=== PATIENT | female | born 2000 | race African-American/Black ===

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

== ENCOUNTER 2022-01-24 22:19 | Emergency (ER) | payer OTHER ==
[2022-01-24 22:27] VITALS: BP 117/76; TEMP 98.7; BMI 22.7
[2022-01-24] MEDS ORDERED: ACETAMINOPHEN 500 MG TABLET (FP) PO ONE (23:19)
[2022-01-24] MEDS ORDERED: ACETAMINOPHEN 325 MG TABLET (FP) ONE (23:21)
[2022-01-24 23:44] LABS: PH,URINE 5.5 (5.0-8.0); URINE APPEARANCE CLEAR; URINE BILIRUBIN NEGATIVE (NEGATIVE); URINE COLOR YELLOW; URINE GLUCOSE (UA) NEGATIVE (NEGATIVE); URINE KETONE NEGATIVE (NEGATIVE); URINE LEUK ESTERASE NEGATIVE (NEGATIVE); URINE NITRITE NEGATIVE (NEGATIVE); URINE PROTEIN NEGATIVE (NEGATIVE); URINE UROBILINOGEN 0.2 mg/dL (0.2-1.0)
[2022-01-25 00:20] VITALS: PULSE 80
== END 2022-01-25 00:22 | disposition home or self-care (01) ==
LOC: JER 22:19
DX: O26.891 Other specified pregnancy related conditions, first trimester (principal); R10.30 Lower abdominal pain, unspecified; Z3A.10 10 weeks gestation of pregnancy
CPT/HCPCS: 81003; 87086; 99283-25

== ENCOUNTER 2022-07-26 12:56 | Emergency (ER) | payer OTHER ==
[2022-07-26 13:18] VITALS: RESP 18; BMI 26.7
[2022-07-26 15:27] VITALS: BP 121/61; PULSE 90; TEMP 98.7
[2022-07-26 16:30] LABS: THROAT:GRP A STREP NOT DETECTED (NOTDETECTED)
== END 2022-07-26 15:56 | disposition home or self-care (01) ==
LOC: JER 12:56
DX: O99.513 Diseases of the respiratory system complicating pregnancy, third trimester (principal); U07.1 COVID-19; J02.9 Acute pharyngitis, unspecified; Z3A.36 36 weeks gestation of pregnancy
CPT/HCPCS: 0241U-QW; 87651; 99283-25

== ENCOUNTER 2022-08-12 09:29 | Emergency (ER) | payer OTHER ==
[2022-08-12 09:45] VITALS: BP 124/67; PULSE 94; RESP 18; TEMP 98.6; BMI 28.1
== END 2022-08-14 11:48 | disposition home or self-care (01) ==
LOC: JER 09:29
DX: O9A.213 Injury, poisoning and certain other consequences of external causes complicating pregnancy, third trimester (principal); T58.91XA Toxic effect of carbon monoxide from unspecified source, accidental (unintentional), initial encounter; Z3A.39 39 weeks gestation of pregnancy
CPT/HCPCS: 82375; 99283-25

== ENCOUNTER 2023-07-23 13:22 | Emergency (ER) | payer OTHER ==
[2023-07-23 13:31] VITALS: BP 116/68; PULSE 90; RESP 18; TEMP 97.4; BMI 24.2
[2023-07-23] MEDS ORDERED: ACETAMINOPHEN 1000 MG/100 ML BAG IVPB ONE (13:59)
[2023-07-23] MEDS ORDERED: ACETAMINOPHEN INJECTION 100 ML IVPB ONE (14:28)
[2023-07-23 14:52] LABS: BASO % 0.2 % (0-2.0); EOS % 0.9 % (0-4.5); HEMATOCRIT 28.9 % (32.4-45.2); HEMOGLOBIN 9.7 GM/dL (10.7-15.3); LYMPH % 12.1 % (8-40); MCH 27.3 pg (25.7-33.7); MCHC 33.6 g/dl (32.0-36.0); MEAN CELL VOLUME 81.2 fl (80-96); MEAN PLT VOLUME 8.3 fl (7.5-11.1); MONO % 3.1 % (3.8-10.2); NEUT % 83.7 % (42.8-82.8); PLATELET COUNT 247 10^3/uL (134-434); RBC 3.56 M/mm3 (3.60-5.2); RDW 16.2 % (11.6-15.6); WHITE BLOOD COUNT 11.2 K/mm3 (4.0-10.0)
[2023-07-23 14:58] LABS: INR 1.18 (0.83-1.09); PROTHROMBIN TIME (PATIENT) 13.7 SEC (9.7-13.0)
[2023-07-23 15:01] LABS: ACTIVATED PTT 23.8 SECONDS (25.2-36.5)
[2023-07-23 15:26] LABS: CALCIUM 8.5 mg/dL (8.5-10.1)
[2023-07-23 15:27] LABS: ALBUMIN 3.6 g/dl (3.4-5.0); BLOOD UREA NITROGEN 6.8 mg/dL (7-18)
[2023-07-23 15:30] LABS: CREATININE 0.6 mg/dL (0.55-1.3)
[2023-07-23 15:32] LABS: BILIRUBIN,TOTAL 0.2 mg/dL (0.2-1); TOT PROT 7.4 g/dl (6.4-8.2)
== END 2023-07-23 17:42 | disposition home or self-care (01) ==
LOC: JER 13:22
PROC: 3E033NZ Introduction of Analgesics, Hypnotics, Sedatives into Peripheral Vein, Percutaneous Approach (ICD-10-PCS; principal; 2023-07-23)
DX: O03.9 Complete or unspecified spontaneous abortion without complication (principal); R42 Dizziness and giddiness; R10.31 Right lower quadrant pain; R10.32 Left lower quadrant pain
CPT/HCPCS: 36415; 76830-TC; 80053; 84702; 85025; 85610; 85730; 86850; 86900; 86901; 99284-25

== ENCOUNTER 2023-10-25 13:02 | Emergency (ER) | payer OTHER ==
[2023-10-25 13:07] VITALS: PULSE 84; RESP 18; TEMP 97.9; BMI 23.6
[2023-10-25] MEDS ORDERED: SODIUM CHLORIDE 1,000 ML IV STA (13:31)
[2023-10-25 14:26] LABS: BASO % 0.4 % (0-2.0); EOS % 1.2 % (0-4.5); HEMATOCRIT 24.2 % (32.4-45.2); HEMOGLOBIN 7.3 GM/dL (10.7-15.3); LYMPH % 25.3 % (8-40); MCH 21.2 pg (25.7-33.7); MCHC 30.1 g/dl (32.0-36.0); MEAN CELL VOLUME 70.4 fl (80-96); MEAN PLT VOLUME 7.3 fl (7.5-11.1); NEUT % 67.1 % (42.8-82.8); PLATELET COUNT 280 10^3/uL (134-434); RBC 3.44 M/mm3 (3.60-5.2); RDW 20.4 % (11.6-15.6); WHITE BLOOD COUNT 5.9 K/mm3 (4.0-10.0)
[2023-10-25 14:43] LABS: POTASSIUM 4.3 mmol/L (3.5-5.1)
[2023-10-25 14:48] LABS: ALBUMIN 3.8 g/dl (3.4-5.0); BLOOD UREA NITROGEN 8.8 mg/dL (7-18); CALCIUM 9.2 mg/dL (8.5-10.1)
[2023-10-25 14:50] LABS: CREATININE 0.5 mg/dL (0.55-1.3)
[2023-10-25 14:52] LABS: BILIRUBIN,TOTAL 0.3 mg/dL (0.2-1); TOT PROT 7.6 g/dl (6.4-8.2)
[2023-10-25 15:33] LABS: ANISOCYTOSIS 1+; MACROCYTOSIS 0
[2023-10-25 15:34] LABS: PLATELET ESTIMATE ADEQUATE
[2023-10-25 15:57] LABS: EPI CELLS 4 /uL (0-25.1); HYALINE CASTS 0 /uL (0-3.1); PH,URINE 5.5 (5.0-8.0); URINE APPEARANCE CLEAR; URINE BACTERIA 40 /uL (0-1359); URINE BILIRUBIN NEGATIVE (NEGATIVE); URINE COLOR YELLOW; URINE GLUCOSE (UA) NEGATIVE (NEGATIVE); URINE KETONE NEGATIVE (NEGATIVE); URINE LEUK ESTERASE NEGATIVE (NEGATIVE); URINE NITRITE NEGATIVE (NEGATIVE); URINE PROTEIN NEGATIVE (NEGATIVE); URINE RBC 58 /uL (0-23.9); URINE UROBILINOGEN 0.2 mg/dL (0.2-1.0); URINE WBC 7 /uL (0-25.8)
[2023-10-25 18:41] LABS: HEMOGLOBIN 7.8 GM/dL (10.7-15.3); MCH 20.8 pg (25.7-33.7); MCHC 30.1 g/dl (32.0-36.0); MEAN CELL VOLUME 68.9 fl (80-96); MEAN PLT VOLUME 7.4 fl (7.5-11.1); PLATELET COUNT 326 10^3/uL (134-434); RBC 3.77 M/mm3 (3.60-5.2); RDW 20.9 % (11.6-15.6)
[2023-10-25 19:49] VITALS: BP 113/75
== END 2023-10-25 20:00 | disposition home or self-care (01) ==
LOC: JER 13:02
DX: O20.9 Hemorrhage in early pregnancy, unspecified (principal); O26.891 Other specified pregnancy related conditions, first trimester; R10.2 Pelvic and perineal pain; Z3A.01 Less than 8 weeks gestation of pregnancy
CPT/HCPCS: 36415; 76817-TC; 80053; 81003; 84702; 85025; 85027; 86850; 86900; 86901; 87086; 99284-25

== ENCOUNTER 2024-02-28 15:29 | Emergency (ER) | payer OTHER ==
[2024-02-28 15:34] VITALS: BP 109/48; PULSE 88; RESP 18; TEMP 98.5; BMI 23.6
[2024-02-28 16:48] LABS: BASO % 0.3 % (0-2.0); EOS % 1.1 % (0-4.5); HEMATOCRIT 27.2 % (32.4-45.2); HEMOGLOBIN 8.6 GM/dL (10.7-15.3); LYMPH % 16.9 % (8-40); MCH 23.4 pg (25.7-33.7); MCHC 31.6 g/dl (32.0-36.0); MEAN PLT VOLUME 7.4 fl (7.5-11.1); MONO % 4.8 % (3.8-10.2); NEUT % 76.9 % (42.8-82.8); PLATELET COUNT 252 10^3/uL (134-434); RBC 3.68 M/mm3 (3.60-5.2); RDW 19.8 % (11.6-15.6); WHITE BLOOD COUNT 8.2 K/mm3 (4.0-10.0)
[2024-02-28 16:53] LABS: EPI CELLS 24 /uL (0-25.1); HYALINE CASTS 0 /uL (0-3.1); PH,URINE 8.5 (5.0-8.0); URINE APPEARANCE CLEAR; URINE BACTERIA 863 /uL (0-1359); URINE BILIRUBIN NEGATIVE (NEGATIVE); URINE COLOR YELLOW; URINE GLUCOSE (UA) NEGATIVE (NEGATIVE); URINE KETONE NEGATIVE (NEGATIVE); URINE LEUK ESTERASE 3+ (NEGATIVE); URINE NITRITE NEGATIVE (NEGATIVE); URINE PROTEIN NEGATIVE (NEGATIVE); URINE RBC 14 /uL (0-23.9); URINE UROBILINOGEN 0.2 mg/dL (0.2-1.0); URINE WBC 112 /uL (0-25.8)
[2024-02-28] MEDS ORDERED: ACETAMINOPHEN 325 MG TABLET (FP) ONE (16:57)
[2024-02-28] MEDS ORDERED: ONDANSETRON *ODT* 4 MG TABLET ONE (16:57)
[2024-02-28 17:05] LABS: HCG,QUALITATIVE URINE Positive
[2024-02-28] MEDS: ACETAMINOPHEN 500 MG TABLET (FP) PO ONE (17:06)
[2024-02-28 17:07] LABS: POTASSIUM 3.8 mmol/L (3.5-5.1)
[2024-02-28] MEDS: ONDANSETRON *ODT* 4 MG TABLET SL ONE (17:07)
[2024-02-28 17:09] LABS: BLOOD UREA NITROGEN 4.6 mg/dL (7-18); CALCIUM 8.5 mg/dL (8.5-10.1)
[2024-02-28 17:13] LABS: CREATININE 0.5 mg/dL (0.55-1.3)
[2024-02-28 17:14] LABS: BILIRUBIN,TOTAL 0.4 mg/dL (0.2-1); TOT PROT 6.7 g/dl (6.4-8.2)
== END 2024-02-28 19:26 | disposition home or self-care (01) ==
LOC: JER 15:29
DX: O23.42 Unspecified infection of urinary tract in pregnancy, second trimester (principal); O26.892 Other specified pregnancy related conditions, second trimester; R10.2 Pelvic and perineal pain; O21.9 Vomiting of pregnancy, unspecified; Z3A.17 17 weeks gestation of pregnancy
CPT/HCPCS: 36415; 76817-TC; 80053; 81003; 84702; 84703; 85025; 86850; 86900; 86901; 87086; 99284-25